=== PATIENT | male | born 1945 | race Caucasian/White ===

== ENCOUNTER → 2016-09-26 | Outpatient (CLI) | payer MEDICARE, OTHER ==
[~2016-09-26] MED LIST: ACETAMINOPHEN PO; ACETAZOLAMIDE250 MG PO; ALB/IPRATROPIUM/1 EA INH; ASPIRIN EC81 M1 PO; ASPIRIN81 M2 PO; AZILECT1 MG PO; COREG6.25 MG PO; COUMADIN6 MG PO; DEXAMETHASONE4 M1 PO; DIAMOX SEQUELS500 MG PO; DITROPAN5 MG PO; FERRO-TIME325 MG PO; FINASTERIDE5 MG PO; FLOMAX0.4 M1 PO; FOLIC ACID1 MG PO; GABAPENTIN600 MG PO; GELNIQUE30 GM TOP; GELNIQUE92 GM TD; HYDROCODON-ACE1 EAC9 PO; HYDROCODONE/APA1 T16 PO; IRON325 ( 651 PO; KEPPRA500 M2 PO; KLONOPIN1 MG PO; LEVAQUIN PO; LEVAQUIN750 MG PO; LIPITOR20 MG PO; LISINOPRIL5 MG PO; LOTRISONE CREAM45 GM TOP; LYRICA75 MG PO; MYRBETRIQ50 MG PO; MYSOLINE250 M1 PO; MYSOLINE250 MG PO; NEURONTIN PO; NEURONTIN600 MG PO; PLAQUENIL200 MG PO; PREDNISOLONE MC; PREDNISOLONE PO; PREDNISONE2.5 MG PO; PREDNISONE5 M1 PO; PRILOSEC20 MG PO; PROBIOTIC250 MG PO; SPACE CHAMBER1 EACH MC
--- NOTE | ~2016-09-26 | CT57 ---
[facility] A Service of [facility] RADIOLOGY TEXT RESULTS PATIENT: FIFI NEUMANN LOCATION: [facility] : 43 UNIT #: [id number] AGE: [address]: Nic Flowers MD SEX: M ORDER DR: [id number] [facility] [address] [place], [place] [address] [id number] O MR#: [id number] [facility] #: [id number] NAME: FIFI NEUMANN : 1945 SEX: M STUDY DATE/TIME: 09/26/2016 13:48 UNIT: CCAT ROOM: STUDY DESCRIPTION: CT Chest Wo Cont Attending Physician: Riley Flowers M.D. Referring Physician: Riley Flowers M.D. Ordering Physician: Riley Flowers M.D. Primary Care Physician: Malina Rice M.D. MEDICAL IMAGING REPORT This report is preliminary unless electronic signature is present EXAM CT chest without contrast DATE 09/26/2016 HISTORY Pneumonia, unspecified organism per referring physician history. Followup. Patient states cough since April 2016. Additional history of lupus, previous stroke, congestive heart failure and seizures. COMPARISON CT chest 12/22/2015, 06/26/2015, 02/13/2015, 01/28/2015, 09/25/2014, 08/21/2014, 08/19/2014 PROCEDURE 5 mm axial images from the thoracic inlet through the upper abdomen without contrast. Sagittal and coronal reformatted images were obtained. This CT exam was performed with one or more of the following radiation dose reduction techniques: automatic control, adjustment of mA and/or kV according to patient size, and iterative reconstruction. FINDINGS Roughly 2 cm peripheral ground-glass density in the left upper lobe (series 4 image 17) is stable since 08/21/2014, documenting 2 years of stability and suggesting a benign etiology. Mild ground-glass interstitial thickening in the superior right lower lobe, unchanged from prior. No new or acute appearing airspace disease is identified. There is no pericardial effusion or pleural effusion. Benign calcified granulomatous changes are present within the right lower lobe. Stable mild cardiac enlargement with pacemaker device in place. 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 No pathologic adenopathy. Thyroid gland within normal limits. [facility]. [facility] A Service of [facility] RADIOLOGY TEXT RESULTS PATIENT: FIFI NEUMANN LOCATION: [facility] : 43 UNIT #: [id number] AGE: [address]: Nic Flowers MD SEX: M ORDER DR: Mild bilateral gynecomastia. Granulomatous changes in the spleen. Cholecystectomy. Remainder included upper abdominal organs have a normal noncontrast appearance. IMPRESSION 1. Roughly 2 cm ground-glass density in the periphery of the left upper lobe has been stable for over 2 years, in keeping with benign etiology. 2. Mild fibrotic change in the right lower lobe, stable. 3. No acute chest findings. 4. 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 5. Stable cardiomegaly. 6. Cholecystectomy. Dictated by... Radha Rodriguez M.D. THIS IS AN ELECTRONICALLY VERIFIED REPORT Radha Rodriguez M.D. at 09/28/2016 5:28 PM FRANKLYN/jaida TD: 09/28/2016 13:08 JOB #: [id number] MEDICAL IMAGING REPORT Page 1 of 1 COPY
== END | disposition home or self-care (01) ==
LOC: CCAT 12:45
DX: J18.9 Pneumonia, unspecified organism (principal); J98.4 Other disorders of lung; I51.7 Cardiomegaly; I77.810 Thoracic aortic ectasia; Z90.49 Acquired absence of other specified parts of digestive tract
CPT/HCPCS: 71250